=== PATIENT | female | born 1985 | race African-American/Black ===

== ENCOUNTER 2017-10-20 14:54 | Emergency (ER) | payer OTHER ==
[2017-10-20 15:18] VITALS: BMI 35.4
[2017-10-20] MEDS ORDERED: ALBUTEROL SO4 2.5/IPRATROPIUM 0.5 INH SOL 3 ML VIAL.NEB. NEB ONE ×6 (15:18→18:24)
[2017-10-20] MEDS ORDERED: DEXAMETHASONE SOD PHOSPHATE 10 MG/1 ML VIAL IM ONE (15:18)
--- NOTE | 2017-10-20 15:30 | PDOC ---
History of Present Illness - General Chief Complaint: Asthma Stated Complaint: ASTHMA Time Seen by Provider: 10/20/17 15:17 History Source: Patient Exam Limitations: No Limitations - History of Present Illness Initial Comments: 10/20/17 15:27 Here with acute exacerbation of asthma. States has upper respiratory infection, cold with a low-grade fever which causes exacerbation of her asthma. Used pump multiple times yesterday but asthma attack has not resolved. Denies phlegm production, denies earache but has mild sore throat pain. Albuterol pump 2 years ago and was concerned may not be effective. Has never been intubated for asthma, last episode was with and delivery 2 years ago with child. Has no physician as her insurance has changed and previous physician did not accept her insurance any longer. Timing/Duration: reports: changing over time, getting worse Severity: reports: moderate Modifying Factors: improves with: albuterol inhaler, albuterol nebulizer, coughing Associated Symptoms: reports: chest pain/soreness, cough, fever/chills Past History - Travel Traveled outside of the country in the last 30 days: No Close contact w/someone who was outside of country & ill: No (pleuritic type chest pain) - Past Medical History Allergies/Adverse Reactions: Allergies Allergy/AdvReac Type Severity Reaction Status Date / Time No Known Allergies Allergy Verified 10/20/17 15:18 Home Medications: Ambulatory Orders Albuterol Sulfate Inhaler - [Ventolin HFA Inhaler -] 2 puff IH PRN 10/27/15 Albuterol 0.083% Nebulizer Almaz [Ventolin 0.083% Nebulizer Soln -] 1 neb NEB Q4H PRN #30 vial 10/20/17 Ibuprofen [Motrin -] 400 mg PO QID PRN #28 tablet 10/20/17 Oseltamivir Phosphate [Tamiflu -] 75 mg PO BID #10 capsule 10/20/17 Prednisone [Deltasone -] 20 mg PO BID #8 tablet 10/20/17 Asthma: Yes (PT STATES LAST ATTACK WAS " A LONG TIME AGO") Cancer: No Cardiac Disorders: No COPD: No Diabetes: No HTN: No Seizures: No Thyroid Disease: No - Immunization History Immunization Up to Date: Yes - Suicide/Smoking/Psychosocial Hx Smoking History: Never smoked Have you smoked in the past 12 months: No Information on smoking cessation initiated: No Hx Alcohol Use: No Drug/Substance Use Hx: No Substance Use Type: None Hx Substance Use Treatment: No Respiratory Specific PMHX - Complaint Specific PMHX Bronchitis: No Pneumonia: No Review of Systems - Review of Systems Able to Perform ROS?: Yes Is the patient limited Belgian proficient: Yes Constitutional: Yes: Symptoms Reported, See HPI, Fever (low grade), Loss of Appetite, Malaise Respiratory: Yes: Symptoms reported, See HPI, Cough, Shortness of Breath, Wheezing Cardiac (ROS): No: Symptoms Reported ABD/GI: No: Symptoms Reported All Other Systems: Reviewed and Negative *Physical Exam - Vital Signs Last Vital Signs Temp Pulse Resp BP Pulse Ox 99.9 F H 60 18 111/68 99 10/20/17 15:13 10/20/17 15:13 10/20/17 15:13 10/20/17 15:13 10/20/17 15:13 - Physical Exam General Appearance: Yes: Nourished, Appropriately Dressed, Apparent Distress, Moderate Distress HEENT: positive: DANIELA, Normal ENT Inspection, TMs Normal, Pharynx Normal Neck: positive: Supple. negative: Lymphadenopathy (R), Lymphadenopathy (L) Respiratory/Chest: positive: Decreased Breath Sounds, Wheezing. negative: Chest Tender, Lungs Clear, Normal Breath Sounds (tachypneic) Cardiovascular: positive: Regular Rhythm Gastrointestinal/Abdominal: positive: Soft. negative: Tender Musculoskeletal: positive: Normal Inspection Extremity: positive: Normal Capillary Refill Integumentary: positive: Normal Color, Dry, Warm, Pale Neurologic: positive: director it II-XII NML intact, Fully Oriented, Alert, Normal Mood/ Affect, Normal Response, Motor Strength 5/5 Progress Note - Progress Note Progress Note: Asthma exacerbation Medical Decision Making - Medical Decision Making 10/20/17 17:46 Patient receiving fourth DuoNeb treatment, remained short of breath with some tight inspiratory effort. States feels much improved from her initial evaluation but has remaining tightness. We'll obtain chest x-ray and reevaluate after this treatment perhaps the next. Patient understands if no resolution or minimal resolution may need hospital admission for continued treatments and monitoring 10/20/17 18:25 CXR with no infiltrates , Temperature now 102.2 .. will obtain influenza swab but is prob cause for asthma exacerbation. medicated with Ibuprofen 600mg and will provide additional Combivent. If patient continues to feels well, will discharge as planned *DC/Admit/Observation/Transfer Diagnosis at time of Disposition: Influenza Asthma exacerbation Qualifiers: Asthma severity: moderate Asthma persistence: unspecified Qualified Code(s): J45.901 - Unspecified asthma with (acute) exacerbation - Discharge Dispostion Disposition: HOME Condition at time of disposition: Stable Admit: No - Prescriptions Prescriptions: Albuterol 0.083% Nebulizer Almaz [Ventolin 0.083% Nebulizer Soln -] 1 neb NEB Q4H PRN #30 vial PRN Reason: Cough Ibuprofen [Motrin -] 400 mg PO QID PRN #28 tablet PRN Reason: Pain Oseltamivir Phosphate [Tamiflu -] 75 mg PO BID #10 capsule Prednisone [Deltasone -] 20 mg PO BID #8 tablet - Referrals - Patient Instructions Printed Discharge Instructions: Asthma -- Adult Additional Instructions: Rest, drink lots of fluids: Teas, water, soups, Pedialyte Saltwater gargles Steamy showers/seem to face break up mucus Avoid contact with others until fevers and cough resolved as this is very contagious Lots of handwashing and good hygiene Influenza takes between 5 and 7 days for resolution To not participate in any activity, work, or school until fevers and cough are gone for at least one day Continue [id number] medications for symptomatic relief Take all of Tamiflu as directed: 1 tab every 12 hours for 5 days Tylenol or Motrin for fever and pain Continue albuterol nebulizers every 4-6 hours for the next 2 days then as needed for continued cough Prednisone as directed until completed Followup with private physician in one to 2 days Return to emergency department / pediatric hospital for worsened symptoms, fevers, dehydration - Post Discharge Activity Forms/Work/School Notes: Back to Work
[2017-10-20] MEDS ORDERED: DEXAMETHASONE SOD PHOSPHATE 10 MG/1 ML VIAL ONE (15:31)
[2017-10-20] MEDS ORDERED: IBUPROFEN 600 MG TABLET (FP) PO ONE ×2 (18:14→18:24)
[2017-10-20 19:56] VITALS: BP 133/68; PULSE 117; TEMP 99.2
== END 2017-10-20 19:57 | disposition home or self-care (01) ==
LOC: JER 14:54
PROC: 3E0333Z Introduction of Anti-inflammatory into Peripheral Vein, Percutaneous Approach (ICD-10-PCS; principal; 2017-10-20)
PROC: 3E0F7GC Introduction of Other Therapeutic Substance into Respiratory Tract, Via Natural or Artificial Opening (ICD-10-PCS; 2017-10-20)
PROC: 3E0F7GC Introduction of Other Therapeutic Substance into Respiratory Tract, Via Natural or Artificial Opening (ICD-10-PCS; 2017-10-20)
PROC: 3E0F7GC Introduction of Other Therapeutic Substance into Respiratory Tract, Via Natural or Artificial Opening (ICD-10-PCS; 2017-10-20)
PROC: 3E0F7GC Introduction of Other Therapeutic Substance into Respiratory Tract, Via Natural or Artificial Opening (ICD-10-PCS; 2017-10-20)
DX: J09.X9 Influenza due to identified novel influenza A virus with other manifestations (principal); J45.901 Unspecified asthma with (acute) exacerbation
CPT/HCPCS: 71046-TC; 84703; 87804; 99282-25

== ENCOUNTER 2018-02-16 01:17 | Emergency (ER) | payer OTHER ==
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
[2018-02-16 01:33] VITALS: BP 111/77; PULSE 81; TEMP 97.3; BMI 38.9
== END 2018-02-16 03:51 | disposition home or self-care (01) ==
LOC: JER 01:17
DX: S83.411A Sprain of medial collateral ligament of right knee, initial encounter (principal); V43.52XA Car driver injured in collision with other type car in traffic accident, initial encounter; Y92.410 Unspecified street and highway as the place of occurrence of the external cause; Y93.89 Activity, other specified; Y99.8 Other external cause status; Z87.09 Personal history of other diseases of the respiratory system
CPT/HCPCS: 73560-TC-RT-FY; 99281-25

== ENCOUNTER 2018-11-13 04:13 | Emergency (ER) | payer OTHER ==
[2018-11-13 04:27] VITALS: BP 113/77; PULSE 120; TEMP 98.6; BMI 39.9
--- NOTE | 2018-11-13 04:38 | PDOC ---
Attending Attestation - HPI HPI: 11/13/18 05:08 The patient is a 33 year old female, with no significant past medical history, who presents to the emergency department with, 2 days of cough, headache, sore throat, and diffuse body aches. She denies recent nausea, vomit, diarrhea or constipation. She denies recent dysuria, frequency, urgency or hematuria. She denies recent chest pain or shortness of breath. Allergies: NKDA - Physicial Exam PE: 11/13/18 05:08 Agree with resident exam. <Erwin Lay - Last Filed: 11/13/18 05:07> - Resident Resident Name: Darron Bolton - ED Attending Attestation I have performed the following: I have examined & evaluated the patient, The case was reviewed & discussed with the resident, I agree w/resident's findings & plan - Medical Decision Making 11/13/18 06:02 33-year-old female with sore throat and bodyaches Rapid strep is negative Patient is tolerating her secretions, Decadron and Tylenol given for symptomatic treatment in the emergency department Patient will be discharged home with instructions for supportive care <Yuko Salcido - Last Filed: 11/13/18 06:03> Attestations - Attestations 11/13/18 05:08 Documentation prepared by Erwin Lay, acting as medical advisor for Yuko Salcido DO. <Erwin Lay - Last Filed: 11/13/18 05:07>
[2018-11-13] MEDS ORDERED: DEXAMETHASONE 4 MG TABLET (FP) PO ONE (04:39)
[2018-11-13] MEDS ORDERED: ACETAMINOPHEN 325 MG TABLET (FP) PO ONE (04:41)
[2018-11-13] MEDS ORDERED: ACETAMINOPHEN 325 MG TABLET (FP) ONE (05:10)
--- NOTE | 2018-11-13 05:52 | PDOC ---
History of Present Illness - General Chief Complaint: Sore Throat Stated Complaint: SORE THROAT/BODY ACHES Time Seen by Provider: 11/13/18 04:30 History Source: Patient Exam Limitations: No Limitations - History of Present Illness Initial Comments: 11/13/18 05:51 The patient is a 33F with no PMH who presents to the ER with complaints of sore throat. The patient states that she's had a sore throat x 2 days with fever. She also admits to a cough, headache, myalgias but denies CP and SOB. Past History - Past Medical History Allergies/Adverse Reactions: Allergies Allergy/AdvReac Type Severity Reaction Status Date / Time No Known Allergies Allergy Verified 02/16/18 01:32 Home Medications: Ambulatory Orders Albuterol Sulfate Inhaler - [Ventolin HFA Inhaler -] 2 puff IH PRN 10/27/15 Albuterol 0.083% Nebulizer Almaz [Ventolin 0.083% Nebulizer Soln -] 1 neb NEB Q4H PRN #30 vial 10/20/17 Ibuprofen [Motrin -] 400 mg PO QID PRN #28 tablet 10/20/17 predniSONE [Deltasone -] 20 mg PO BID #8 tablet 10/20/17 Asthma: Yes (PT STATES LAST ATTACK WAS " A LONG TIME AGO") Cancer: No Cardiac Disorders: No COPD: No Diabetes: No HTN: No Seizures: No Thyroid Disease: No - Immunization History Immunization Up to Date: Yes - Suicide/Smoking/Psychosocial Hx Smoking History: Unknown if ever smoked Have you smoked in the past 12 months: No Hx Alcohol Use: No Drug/Substance Use Hx: No Substance Use Type: None Hx Substance Use Treatment: No Review of Systems - Review of Systems Able to Perform ROS?: Yes Is the patient limited [place] proficient: No Constitutional: Yes: Fever HEENTM: Yes: Throat Pain, Throat Swelling Respiratory: Yes: Cough. No: Shortness of Breath Cardiac (ROS): No: Chest Pain, Palpitations ABD/GI: Yes: Diarrhea. No: Nausea, Vomiting : No: Dysuria, Discharge, Pain *Physical Exam - Vital Signs Last Vital Signs Temp Pulse Resp BP Pulse Ox 98.6 F 120 H 20 113/77 99 11/13/18 04:22 11/13/18 04:22 11/13/18 04:22 11/13/18 04:22 11/13/18 04:22 - Physical Exam General Appearance: Yes: Nourished, Appropriately Dressed. No: Disheveled HEENT: positive: Normal Voice, Other (Swollen oropharynx). negative: Muffled/ Hoarse voice, Tonsillar Exudate, Tonsillar Erythema Neck: positive: Supple. negative: Tender Respiratory/Chest: positive: Lungs Clear, Normal Breath Sounds. negative: Chest Tender Cardiovascular: positive: Regular Rhythm, Regular Rate, S1, S2. negative: Diastolic Murmur, Systolic Murmur Gastrointestinal/Abdominal: positive: Flat, Soft. negative: Tender Musculoskeletal: negative: CVA Tenderness (R), CVA Tenderness (L) Integumentary: positive: Normal Color, Dry, Warm Neurologic: positive: Fully Oriented, Alert, Normal Mood/Affect Moderate Sedation - Procedure Monitoring Vital Signs: Procedure Monitoring Vital Signs Temperature 98.6 F 11/13/18 04:22 Pulse Rate 120 H 11/13/18 04:22 Respiratory Rate 20 11/13/18 04:22 Blood Pressure 113/77 11/13/18 04:22 O2 Sat by Pulse Oximetry (%) 99 11/13/18 04:22 ED Treatment Course - Medications Given in the ED: ED Medications Discontinued Medications Generic Name Dose Route Start Last Admin Trade Name Freq PRN Reason Stop Dose Admin Acetaminophen 650 mg 11/13/18 04:41 11/13/18 05:16 Tylenol - PO 11/13/18 04:42 650 mg ONCE ONE Administration Dexamethasone 10 mg 11/13/18 04:39 11/13/18 05:16 Decadron - PO 11/13/18 04:40 10 mg ONCE ONE Administration Medical Decision Making - Medical Decision Making 11/13/18 06:13 The patient is a 33F with no PMH who presents to the ER with complaints of a sore throat and fever. Strep negative. Given tylenol and decadron for inflammation. Will d/c with PCP f/u. *DC/Admit/Observation/Transfer Diagnosis at time of Disposition: Viral respiratory illness - Discharge Dispostion Disposition: HOME Condition at time of disposition: Stable Decision to Admit order: No - Referrals - Patient Instructions Printed Discharge Instructions: Sore Throat Additional Instructions: Please follow up with your primary care physician in 2-3 days. Your rapid strep test was negative. There is another part of this test that takes 2 days. If that is positive, we will call you. Please return to the ER if you have any signs or symptoms of chest pain, shortness of breath, uncontrollable fever, chills, nausea, vomiting, numbness, tingling, or weakness in any part of your body, changes in vision, or slurred speech. Please return to the ER if symptoms persist, worsen, or new symptoms arise. - Post Discharge Activity Forms/Work/School Notes: Back to Work
== END 2018-11-13 06:44 | disposition home or self-care (01) ==
LOC: JER 04:13
DX: J06.9 Acute upper respiratory infection, unspecified (principal); B97.89 Other viral agents as the cause of diseases classified elsewhere
CPT/HCPCS: 87070; 87880; 99281-25

== ENCOUNTER 2018-11-21 17:23 | Emergency (ER) | payer OTHER ==
[2018-11-21 17:33] VITALS: BP 133/83; PULSE 104; TEMP 98.3; BMI 39.9
[2018-11-21] MEDS ORDERED: KETOROLAC TROMETHAMINE 60 MG/2 ML VIAL IM ONE (18:16)
[2018-11-21] MEDS ORDERED: KETOROLAC TROMETHAMINE 60 MG/2 ML VIAL ONE (18:24)
--- NOTE | 2018-11-21 18:36 | PDOC ---
History of Present Illness - General Chief Complaint: Cold Symptoms Stated Complaint: COUGH FEVER MIGRAINE Time Seen by Provider: 11/21/18 18:07 History Source: Patient Exam Limitations: No Limitations - History of Present Illness Initial Comments: 11/21/18 18:38 Onset of fevers, chills, body aches, ear and facial pain yesterday that is progressively worsen. Patient states left side of her face on the right and even has tooth pain. Has a moist cough with nonproductive. And sore throat pain. Timing/Duration: reports: getting worse Associated Symptoms: reports: cough, earache, facial pain, fever/chills, headache, nasal drainage, sore throat Past History - Travel Traveled outside of the country in the last 30 days: No Close contact w/someone who was outside of country & ill: No - Past Medical History Allergies/Adverse Reactions: Allergies Allergy/AdvReac Type Severity Reaction Status Date / Time No Known Allergies Allergy Verified 02/16/18 01:32 Home Medications: Ambulatory Orders Albuterol Sulfate Inhaler - [Ventolin HFA Inhaler -] 2 puff IH PRN 10/27/15 Albuterol 0.083% Nebulizer Almaz [Ventolin 0.083% Nebulizer Soln -] 1 neb NEB Q4H PRN #30 vial 10/20/17 Ibuprofen [Motrin -] 400 mg PO QID PRN #28 tablet 10/20/17 Amox-Tr/K Cl [Augmentin 875Mg Tablet] 1 tab PO BID #20 tablet 11/21/18 Oseltamivir Phosphate [Tamiflu -] 75 mg PO BID #10 capsule 11/21/18 Asthma: Yes (PT STATES LAST ATTACK WAS " A LONG TIME AGO") Cancer: No Cardiac Disorders: No COPD: No Diabetes: No HTN: No Seizures: No Thyroid Disease: No - Immunization History Immunization Up to Date: Yes - Suicide/Smoking/Psychosocial Hx Smoking History: Never smoked Have you smoked in the past 12 months: No Hx Alcohol Use: No Drug/Substance Use Hx: No Substance Use Type: None Hx Substance Use Treatment: No Respiratory Specific PMHX - Complaint Specific PMHX Bronchitis: No Pneumonia: No Review of Systems - Review of Systems Able to Perform ROS?: Yes Is the patient limited [place] proficient: Yes Constitutional: Yes: Symptoms Reported, See HPI, Chills, Fever, Loss of Appetite , Malaise HEENTM: Yes: Symptoms Reported, See HPI, Nose Congestion, Throat Pain, Throat Swelling Respiratory: Yes: Symptoms reported, See HPI, Cough Neurological: Yes: Symptoms reported, See HPI, Headache (frontal ethmoid and maxillary sinus tenderness) All Other Systems: Reviewed and Negative *Physical Exam - Vital Signs Last Vital Signs Temp Pulse Resp BP Pulse Ox 98.3 F 104 H 24 H 133/83 98 11/21/18 17:31 11/21/18 17:31 11/21/18 17:31 11/21/18 17:31 11/21/18 17:31 - Physical Exam Comments: 11/21/18 18:39 GENERAL: [ The pateint is awake, alert, and appropriately interactive.] EYES: [The pupils are equal, round, and reactive to light, with clear, conjunctiva.but glassy, has tenderness to frontal, maxillary, ethmoid sinuses with bogginess and some mild swelling.] NOSE: [The nose with clear drainage EARS: [The ear canals and tympanic membranes are congested but landmarks easily visualed ] THROAT: [The oropharynx is clear with erythema, no exudates. The mucous membranes are moist.] NECK: [The neck is supple with mildly tender adenopathy, no menigemous] CHEST: [The lungs are coarse but clear without crackles, or wheezes.] HEART: [Heart is regular rhythm, with normal S1 and S2, no murmurs.] ABDOMEN: [The abdomen is soft and nontender with normal bowel sounds. There is no organomegaly and no mass. There is no guarding or rebound.] EXTREMITIES: [Extremities are normal.] NEURO: [Behavior is normal for age.cranky but easily, Tone is normal.] SKIN: [Skin is unremarkable without rash or swelling. There is no bruising, and there are no other signs of injury.] General Appearance: Yes: Appropriately Dressed Respiratory/Chest: positive: Lungs Clear Moderate Sedation - Procedure Monitoring Vital Signs: Procedure Monitoring Vital Signs Temperature 98.3 F 11/21/18 17:31 Pulse Rate 104 H 11/21/18 17:31 Respiratory Rate 24 H 11/21/18 17:31 Blood Pressure 133/83 11/21/18 17:31 O2 Sat by Pulse Oximetry (%) 98 11/21/18 17:31 Progress Note - Progress Note Progress Note: Clinical evidence of influenza and within guidelines for treatment with Tamiflu. Due to patient's swelling and exquisite sinus tenderness will give a watch and wait Augmentin with patient's understanding to start tomorrow for worsened pain, worsened fevers, purulent drainage from nose or swelling. *DC/Admit/Observation/Transfer Diagnosis at time of Disposition: Influenzal acute upper respiratory infection - Discharge Dispostion Disposition: HOME Condition at time of disposition: Stable Decision to Admit order: No - Referrals - Patient Instructions Printed Discharge Instructions: DI for Viral Upper Respiratory Infection -- Adult Additional Instructions: Rest, drink lots of fluids: Teas, water, soups, Pedialyte Saltwater gargles Steamy showers/seem to face break up mucus Old-fashioned treatments help! Avoid contact with others until fevers and cough resolved as this is very contagious Lots of handwashing and good hygiene Continue [id number] medications for symptomatic relief Tylenol or Motrin for fever and pain Take all of Tamiflu as directed: 1 tab every 12 hours for 5 days Watch and wait Augmentin, if sinus drainage worsens to with thick green yellow, facial swelling, worsening pain to teeth, start Augmentin and follow-up with private physician in one to 2 days Followup with private physician in one to 2 days as needed or if worsening Return to emergency department for worsened symptoms, fevers, dehydration Influenza takes between 5 and 7 days for resolution To not participate in any activity, work, or school until fevers and cough are gone for at least one day - Post Discharge Activity Forms/Work/School Notes: Back to Work
== END 2018-11-21 18:38 | disposition home or self-care (01) ==
LOC: JERFT 17:23
PROC: 3E0233Z Introduction of Anti-inflammatory into Muscle, Percutaneous Approach (ICD-10-PCS; principal; 2018-11-21)
DX: J11.1 Influenza due to unidentified influenza virus with other respiratory manifestations (principal)
CPT/HCPCS: 99281-25

== ENCOUNTER 2018-11-23 13:59 | Emergency (ER) | payer OTHER ==
[2018-11-23 14:13] VITALS: TEMP 97.8; BMI 39.5
[2018-11-23] MEDS ORDERED: FLUTICASONE PROP 0.05% 16 GM NASAL SPRAY NS ONE (16:20)
--- NOTE | 2018-11-23 16:20 | PDOC ---
History of Present Illness <Quang Durant - Last Filed: 11/23/18 18:48> - General History Source: Patient Exam Limitations: No Limitations - History of Present Illness Initial Comments: 11/23/18 15:59 33 yo female pmh of asthma and recent sinus infection presents to the ED with a left sided FLORES for 10 days. Pt states the FLORES started with the UR infection but has persisted for the past 10 days with resolution of sore throat and body aches. Pain is on the left side of her face, constant without changing intensity over night, described as constant pressure, made worse with loud noises and light, denies radiation. Pt has been taking OTC Motrin 600 mg alternating with Excedrin every 4 hours with relief but states the pain comes right back after 4 hours. Denies N/V/F/C, changes in vision/speech, weakness or numbness down 1 side of her body. Pt has been taking antibiotics for 2 days. <Og Shore - Last Filed: 11/23/18 19:14> - General Chief Complaint: Headache Stated Complaint: HEADACHE Time Seen by Provider: 11/23/18 14:29 Past History <Quang Durant - Last Filed: 11/23/18 18:48> - Past Medical History Asthma: Yes (PT STATES LAST ATTACK WAS " A LONG TIME AGO") Cancer: No Cardiac Disorders: No COPD: No Diabetes: No HTN: No Seizures: No Thyroid Disease: No - Immunization History Immunization Up to Date: Yes - Suicide/Smoking/Psychosocial Hx Smoking History: Never smoked Have you smoked in the past 12 months: No Information on smoking cessation initiated: No Hx Alcohol Use: No Drug/Substance Use Hx: No Substance Use Type: None Hx Substance Use Treatment: No <Og Shore - Last Filed: 11/23/18 19:14> - Past Medical History Allergies/Adverse Reactions: Allergies Allergy/AdvReac Type Severity Reaction Status Date / Time No Known Allergies Allergy Verified 11/23/18 14:08 Home Medications: Ambulatory Orders Albuterol Sulfate Inhaler - [Ventolin HFA Inhaler -] 2 puff IH PRN 10/27/15 Amox-Tr/K Cl [Augmentin 875Mg Tablet] 1 tab PO BID #20 tablet 11/21/18 Oseltamivir Phosphate [Tamiflu -] 75 mg PO BID #10 capsule 11/21/18 Review of Systems - Review of Systems Constitutional: No: Chills, Fever HEENTM: No: Double Vision <Og Shore - Last Filed: 11/23/18 19:14> *Physical Exam - Vital Signs Last Vital Signs Temp Pulse Resp BP Pulse Ox 97.8 F 94 H 20 104/73 100 11/23/18 14:08 11/23/18 14:08 11/23/18 14:08 11/23/18 14:08 11/23/18 14:08 <Quang Durant - Last Filed: 11/23/18 18:48> - Vital Signs Last Vital Signs Temp Pulse Resp BP Pulse Ox 97.8 F 94 H 20 104/73 100 11/23/18 14:08 11/23/18 14:08 11/23/18 14:08 11/23/18 14:08 11/23/18 14:08 <Og Shore - Last Filed: 11/23/18 19:14> Moderate Sedation - Procedure Monitoring Vital Signs: Procedure Monitoring Vital Signs Temperature 97.8 F 11/23/18 14:08 Pulse Rate 94 H 11/23/18 14:08 Respiratory Rate 20 11/23/18 14:08 Blood Pressure 104/73 11/23/18 14:08 O2 Sat by Pulse Oximetry (%) 100 11/23/18 14:08 <Quang Durant - Last Filed: 11/23/18 18:48> - Procedure Monitoring Vital Signs: Procedure Monitoring Vital Signs Temperature 97.8 F 11/23/18 14:08 Pulse Rate 94 H 11/23/18 14:08 Respiratory Rate 20 11/23/18 14:08 Blood Pressure 104/73 11/23/18 14:08 O2 Sat by Pulse Oximetry (%) 100 11/23/18 14:08 <Og Shore - Last Filed: 11/23/18 19:14> ED Treatment Course - ADDITIONAL ORDERS Additional order review: Laboratory Results 11/23/18 17:13 Urine HCG, Qual Negative - RADIOLOGY Radiology Studies Ordered: Category Date Time Status FACIAL BONES CT W/O CONTRAST [CT] Stat CT Scan 11/23/18 16:[address] WITHOUT CONTRAST [CT] Stat CT Scan 11/23/18 16:54 Taken - Medications Given in the ED: ED Medications Discontinued Medications Generic Name Dose Route Start Last Admin Trade Name Ramy PRN Reason Stop Dose Admin Acetaminophen 1,000 mg 11/23/18 16:21 11/23/18 17:13 Ofirmev Injection - IVPB 11/23/18 16:22 1,000 mg ONCE ONE Administration Sodium Chloride 1,000 mls @ 1,000 mls/hr 11/23/18 16:21 11/23/18 17:13 Normal Saline - IV 11/23/18 17:20 1,000 mls/hr ASDIR STA Administration Metoclopramide HCl 10 mg 11/23/18 16:21 11/23/18 17:13 Reglan Injection - IVPUSH 11/23/18 16:22 10 mg ONCE ONE Administration <Quang Durant - Last Filed: 11/23/18 18:48> Medical Decision Making - Medical Decision Making 11/23/18 19:05 33 yo presents for 10 days of constant left sided facial pain with diagnosed sinusitis, on treatment for 2 days Amoxicillin Vitals WNL No numbness/tingling or weakness on 1 side of her body, changes in vision/ speech Since no imaging done on last visit, Head and facial CT ordered CT shows ethmoid and maxillary sinusitis without acute path in the brain DC home with continuation of antibiotics and PCP follow up. Continue Excedrin and Motrin for FLORES Strict return precautions given. Pt understands <Og Shore - Last Filed: 11/23/18 19:14> *DC/Admit/Observation/Transfer <Quang Durant - Last Filed: 11/23/18 18:48> - Discharge Dispostion Decision to Admit order: No <Og Shore - Last Filed: 11/23/18 19:14> Diagnosis at time of Disposition: Face pain Sinusitis Qualifiers: Sinusitis location: unspecified location Chronicity: unspecified Qualified Code (s): J32.9 - Chronic sinusitis, unspecified - Discharge Dispostion Disposition: HOME Condition at time of disposition: Fair - Referrals Referrals: Yovany So MD [Staff Physician] - - Patient Instructions Printed Discharge Instructions: DI for Sinusitis Additional Instructions: Please make an appointment with your Primary Doctor and the ENT Doctor referred to you within the next 48 hours. Continue taking the antibiotics prescribed to use as directed. Continue taking Excedrin and Motrin over the counter for the head aches. Return to the ER for new or concerning symptoms including but not limited to: worsening pain, fevers, neck pain, numbness/weakness on 1 side of your body, changes in speech/vision. Thank you
[2018-11-23] MEDS ORDERED: METOCLOPRAMIDE HCL INJECTION 10 MG/2 ML VIAL IVPUSH ONE (16:21)
[2018-11-23] MEDS ORDERED: SODIUM CHLORIDE 1,000 ML IV STA (16:21)
[2018-11-23] MEDS ORDERED: OXYMETAZOLINE 0.05% NASAL SOLUTION 15 ML BOTTLE NS ONE (16:21)
[2018-11-23] MEDS ORDERED: ACETAMINOPHEN 1000 MG/100 ML VIAL (NON FORMULARY) IVPB ONE (16:21)
[2018-11-23] MEDS ORDERED: ACETAMINOPHEN INJECTION 100 ML IVPB ONE (17:00)
[2018-11-23] MEDS ORDERED: METOCLOPRAMIDE HCL INJECTION 10 MG/2 ML VIAL ONE (17:00)
--- NOTE | 2018-11-23 17:14 | PDOC ---
Attending Attestation - Resident Resident Name: KeoOg lemus - ED Attending Attestation I have performed the following: I have examined & evaluated the patient, The case was reviewed & discussed with the resident, I agree w/resident's findings & plan, Exceptions are as noted - HPI HPI: 11/23/18 17:16 The patient is a 33 year old female, with h/o asthma, who presents to the emergency department with 5 days of L face pain and headache. Pt was seen here 2 days ago and diagnosed with sinus infection. Pt was started on augmentin, which she has been taking for the past 2 days. Pt denies any F/C. States that she still has significant congestion and runny nose. Patient endorses taking Motrin and Excedrin, with temporary relief. She denies recent fevers, chills, or dizziness. She denies recent nausea, vomit , diarrhea or constipation. She denies recent dysuria, frequency, urgency or hematuria. She denies recent chest pain or shortness of breath. Allergies: NKDA - Physicial Exam PE: 11/23/18 17:17 GENERAL: Awake, alert, and fully oriented, in no acute distress. HEAD: No signs of trauma EYES: PERRLA, EOMI, sclera anicteric, conjunctiva clear ENT: + tenderness over L maxillary sinus NECK: Nontender, no stepoffs, Normal ROM, supple, no lymphadenopathy, JVD, or masses LUNGS: Breath sounds equal, clear to auscultation bilaterally. No wheezes, and no crackles HEART: Regular rate and rhythm, normal S1 and S2, no murmurs, rubs or gallops ABDOMEN: Soft, nontender, normoactive bowel sounds. No guarding, no rebound. No masses EXTREMITIES: Normal range of motion, no edema. No clubbing or cyanosis. No cords, erythema, or tenderness NEUROLOGICAL: Cranial nerves II through XII intact. 5/5 strength and sensation in all extremities, Normal speech, normal gait, normal cerebellar function SKIN: Warm, Dry, normal turgor, no rashes or lesions noted. - Medical Decision Making 11/23/18 17:18 33 F with L facial pain and headache, likely 2/2 sinus infection. No thunderclap /worst headache of life or other s/s SAH. No neck stiffness or fevers to suggest meningitis. - CT head/facial bones - IVF, tylenol, reglan - flonase nasal spray 11/23/18 18:34 CT shows bilateral maxillary and ethmoid sinusitis. No other intracranial pathology Pt is only on day 2 of augmentin, will continue current course Pt is well appearing, with normal vitals. Clinically stable for DC at this time. I discussed the physical exam findings, ancillary test results and final diagnoses with the patient. I answered all of the patient's questions. The patient was satisfied with the care received and felt comfortable with the discharge plan and treatment plan. The patient agrees to follow up with the primary care physician within 24-72 hours.
[2018-11-23 19:06] VITALS: BP 100/64; PULSE 86
== END 2018-11-23 19:06 | disposition home or self-care (01) ==
LOC: JERFT 13:59 → JER 13:59
PROC: 3E033GC Introduction of Other Therapeutic Substance into Peripheral Vein, Percutaneous Approach (ICD-10-PCS; principal; 2018-11-23)
PROC: 3E033NZ Introduction of Analgesics, Hypnotics, Sedatives into Peripheral Vein, Percutaneous Approach (ICD-10-PCS; 2018-11-23)
DX: J32.2 Chronic ethmoidal sinusitis (principal); J32.0 Chronic maxillary sinusitis
CPT/HCPCS: 70450-TC; 70486-TC; 84703; 96374; 96375; 99283-25; J0131; J7030

== ENCOUNTER 2022-01-09 15:27 | Emergency (ER) | payer OTHER ==
[2022-01-09 16:13] VITALS: BP 131/84; PULSE 95; TEMP 98.6; BMI 42.5
== END 2022-01-09 18:55 | disposition left against medical advice (07) ==
LOC: JER 15:27
DX: R51.9 Headache, unspecified (principal)
CPT/HCPCS: 99281-25

== ENCOUNTER 2022-01-13 18:19 | Emergency (ER) | payer OTHER ==
[2022-01-13 18:34] VITALS: BP 112/65; PULSE 79; TEMP 98.2; BMI 39.0
[2022-01-13] MEDS ORDERED: SODIUM CHLORIDE 1,000 ML IV ONE (18:40)
[2022-01-13] MEDS ORDERED: ONDANSETRON 4 MG/2 ML VIAL IVPB ONE (18:40)
[2022-01-13] MEDS ORDERED: morphine CARPU-JECT 4 MG/1 ML DISP.SYRIN IVPUSH ONE (18:40)
[2022-01-13] MEDS ORDERED: ONDANSETRON 4 MG/2 ML VIAL ONE (18:49)
[2022-01-13] MEDS ORDERED: morphine SULFATE 4 MG/ML VIAL ONE (18:49)
[2022-01-13 19:46] LABS: BASO % 0.5 % (0-2.0); EOS % 0.3 % (0-4.5); HEMATOCRIT 36.1 % (32.4-45.2); HEMOGLOBIN 12.1 GM/dL (10.7-15.3); LYMPH % 42.4 % (8-40); MCH 28.3 pg (25.7-33.7); MCHC 33.5 g/dl (32.0-36.0); MEAN CELL VOLUME 84.7 fl (80-96); MEAN PLT VOLUME 8.9 fl (7.5-11.1); MONO % 4.4 % (3.8-10.2); NEUT % 52.4 % (42.8-82.8); PLATELET COUNT 248 10^3/uL (134-434); RBC 4.26 M/mm3 (3.60-5.2); RDW 16.1 % (11.6-15.6); WHITE BLOOD COUNT 4.2 K/mm3 (4.0-10.0)
[2022-01-13 20:19] LABS: BLOOD UREA NITROGEN 9.1 mg/dL (7-18); CALCIUM 8.6 mg/dL (8.5-10.1)
[2022-01-13 20:20] LABS: ALBUMIN 3.4 g/dl (3.4-5.0)
[2022-01-13 20:22] LABS: CREATININE 0.7 mg/dL (0.55-1.3)
[2022-01-13 20:24] LABS: BILIRUBIN,TOTAL 0.4 mg/dL (0.2-1); TOT PROT 6.5 g/dl (6.4-8.2)
[2022-01-13] MEDS ORDERED: KETOROLAC TROMETHAMINE 30 MG/1 ML VIAL IVPUSH ONE (20:46)
[2022-01-13] MEDS ORDERED: KETOROLAC TROMETHAMINE 15 MG/ML VIAL ONE (20:48)
[2022-01-13 21:03] LABS: EPI CELLS 29 /uL (0-25.1); HYALINE CASTS 2 /uL (0-3.1); PH,URINE 6.5 (5.0-8.0); URINE APPEARANCE CLOUDY; URINE BACTERIA 3 /uL (0-1359); URINE BILIRUBIN NEGATIVE (NEGATIVE); URINE COLOR YELLOW; URINE GLUCOSE (UA) NEGATIVE (NEGATIVE); URINE KETONE NEGATIVE (NEGATIVE); URINE LEUK ESTERASE NEGATIVE (NEGATIVE); URINE NITRITE NEGATIVE (NEGATIVE); URINE PROTEIN 1+ (NEGATIVE); URINE RBC 1710 /uL (0-23.9); URINE UROBILINOGEN 0.2 mg/dL (0.2-1.0); URINE WBC 12 /uL (0-25.8)
[2022-01-13 23:45] LABS: YEAST FEW (NEGATIVE)
== END 2022-01-13 23:53 | disposition home or self-care (01) ==
LOC: JER 18:19
PROC: 3E033GC Introduction of Other Therapeutic Substance into Peripheral Vein, Percutaneous Approach (ICD-10-PCS; principal; 2022-01-13)
DX: N20.0 Calculus of kidney (principal)
CPT/HCPCS: 36415; 74177-TC; 80053; 81003; 84703; 85025; 99285-25; Q9967